=== PATIENT | female | born 1940 | race Caucasian/White ===

== ENCOUNTER 2016-11-13 06:03 | Day surgery (SDC) | payer OTHER ==
[2016-11-04 11:39] VITALS: BMI 24.2
--- NOTE | 2016-11-09 10:10 | HP ---
[facility]ellite [facility] - Chief Complaint Chief Complaint: left knee pain - Past Medical History Allergies/Adverse Reactions: Allergies Allergy/AdvReac Type Severity Reaction Status Date / Time meperidine HCl [From Demerol] Allergy Severe Hives Verified 11/04/16 11:29 propoxyphene HCl Allergy Severe Hives Verified 11/04/16 11:29 [From Darvon] - Current Medications Current Medications: Home Medications Medication Instructions Recorded Cholecalciferol (Vitamin D3) 2,000 unit PO DAILY 11/04/16 [Vitamin D3] Ferrous Sulfate [Feosol] 325 mg PO DAILY 11/04/16 Fosinopril Sodium 20 mg PO DAILY 11/04/16 Turmeric Root Extract [Turmeric] 500 mg PO DAILY 11/04/16 Satellite Physical Exam - Physical Examination General Appearance: Well Nourished, Well Developed, Alert & Oriented x3 ENT: Clear Lung: Normal air movement Heart: Regular rate & rhythm Extremities: Other (left knee- + swelling, + ttp medially, decr rom, nvi xrays show severe medial djd) Neurological: Intact, Alert, Oriented Satellite Impression/Plan - Impression/Plan Impression: left knee medial djd Operative Procedure: left medial [place] Date to be Performed: 11/13/16
[~2016-11-13 06:03] MED LIST: CEFAZOLIN 1 GM/D5W 50 ML IVPB ONE; CELECOXIB 200 MG CAPSULE PO ONE; GABAPENTIN 300 MG CAPSULE (FP) PO ONE; ROPIVICAINE 0.2%/MORPH PF/KETOROLAC - 51ML DISP.SYRINGE IA ONE; TRANEXAMIC ACID 1000 MG/10 ML VIAL IVPUSH ONE
[2016-11-13] MEDS ORDERED: GABAPENTIN 300 MG CAPSULE (FP) ONE (06:26)
[2016-11-13] MEDS ORDERED: CELECOXIB 200 MG CAPSULE ONE (06:26)
[2016-11-13] MEDS ORDERED: THROMBIN (BOVINE) 5,000 UNIT VIAL TP ONE ×2 (07:16→09:17)
[2016-11-13] MEDS ORDERED: ROPIVICAINE 0.2%/MORPH PF/KETOROLAC - 51ML DISP.SYRINGE IA ONE ×2 (07:16→07:52)
[2016-11-13] MEDS ORDERED: ceFAZolin SODIUM 1 GM VIAL ONE ×2 (07:16→08:30)
[2016-11-13] MEDS ORDERED: GELATIN, ABSORBABLE 100 EACH SPONGE TP ONE ×2 (07:16→09:17)
[2016-11-13] MEDS ORDERED: DEXAMETHASONE SOD PHOSPHATE/PF 10 MG/ML SDV ONE (07:20)
[2016-11-13] MEDS ORDERED: MIDAZOLAM HCL 2 MG/2 ML SINGLE DOSE VIAL ONE ×2 (07:21→08:17)
[2016-11-13] MEDS ORDERED: TRANEXAMIC ACID 1000 MG/10 ML VIAL IVPUSH ONE (07:52)
[2016-11-13] MEDS ORDERED: SUCCINYLCHOLINE CHLORIDE 200 MG/10 ML VIAL ONE (08:02)
[2016-11-13] MEDS ORDERED: PROPOFOL 20 ML ONE (08:02)
[2016-11-13] MEDS ORDERED: ONDANSETRON 4 MG/2 ML VIAL ONE (08:42)
[2016-11-13] MEDS ORDERED: TRANEXAMIC ACID 1000 MG/10 ML VIAL ONE (09:38)
[2016-11-13] MEDS ORDERED: MULTIVITAMINS (DAILY MVI) TABLET (FP) PO SCH (10:00)
[2016-11-13] MEDS ORDERED: ONDANSETRON 4 MG/2 ML VIAL IVPB PRN (10:00)
[2016-11-13] MEDS ORDERED: PANTOPRAZOLE 40 MG TABLET (FP) PO SCH (10:00)
[2016-11-13] MEDS ORDERED: LACTATED RINGERS SOLUTION 1,000 ML IV SCH (10:00)
[2016-11-13] MEDS ORDERED: MAG HYDROX/AL HYDROX/SIMETH 30 ML UNIT-DOSE CUP PO PRN (10:00)
--- NOTE | 2016-11-13 10:03 | OP ---
Operative Note - Note: Operative Date: 11/13/16 (bess) Pre-Operative Diagnosis: left knee medial djd Operation: left medial [place] u[place] Post-Operative Diagnosis: Same as Pre-op Surgeon: Gage Caal Head Of Merchandise Buying: Shakeel Morales Anesthesiologist/MIXER RUNNER: Renita Mahmood Anesthesia: Spinal, Local Specimens Removed: bone fragments Estimated Blood Loss (mls): 100 Operative Report Dictated: Yes
[2016-11-13] MEDS ORDERED: oxyCODONE HCL 5 MG TABLET PO PRN ×2 (10:13)
[2016-11-13] MEDS ORDERED: ACETAMINOPHEN 1000 MG/100 ML VIAL (NON FORMULARY) IVPB ONE (10:30)
[2016-11-13] MEDS: CEFAZOLIN 1 GM/D5W 50 ML IVPB SCH (16:00)
[2016-11-13] MEDS: ACETAMINOPHEN 325 MG TABLET (FP) PO SCH (18:14)
[2016-11-13] MEDS: SENNOSIDES/DOCUSATE COMBO (SENNA PLUS) TABLET (UD) PO SCH (23:28)
[2016-11-13] MEDS: oxyCODONE HCL 10 MG SUSTAINED ACTING TABLET PO SCH (23:29)
[2016-11-13] MEDS: GABAPENTIN 300 MG CAPSULE (FP) PO SCH (23:29)
[2016-11-14] MEDS: CEFAZOLIN 1 GM/D5W 50 ML IVPB SCH (00:18)
[2016-11-14] MEDS: ACETAMINOPHEN 325 MG TABLET (FP) PO SCH ×2 (00:18→06:39)
[2016-11-14 06:26] VITALS: BP 105/56; PULSE 61; TEMP 97.9
[2016-11-14] MEDS ORDERED: ASPIRIN 325 MG TABLET PO SCH (08:00)
[2016-11-14] MEDS: SENNOSIDES/DOCUSATE COMBO (SENNA PLUS) TABLET (UD) PO SCH ×2 (09:41→09:42)
[2016-11-14] MEDS: oxyCODONE HCL 10 MG SUSTAINED ACTING TABLET PO SCH (09:43)
[2016-11-14] MEDS: GABAPENTIN 300 MG CAPSULE (FP) PO SCH (09:43)
[2016-11-14] MEDS ORDERED: FOSINOPRIL SODIUM 20 MG PO SCH (10:00)
[2016-11-14] MEDS ORDERED: LISINOPRIL 20 MG TABLET (FP) PO SCH (10:00)
[2016-11-14] MEDS ORDERED: FERROUS SO4 325 MG TABLET (FP) PO SCH (10:00)
--- NOTE | 2016-11-16 15:24 | OP ---
DATE OF OPERATION: 11/13/2016 PROCEDURE: 1. Left medial unicompartmental knee replacement , robotic-assisted navigation (MAKOplasty). 2. Patelloplasty. PREOPERATIVE DIAGNOSIS: Degenerative joint disease, left knee. POSTOPERATVE DIAGNOSIS: Degenerative joint disease, left knee. SURGICAL ATTENDING: Gage Caal MD TOBACCO SORTER: KRISTIN Garibay ANESTHESIA: Regional with spinal. CLOSURE: No. 4 femur, No. 4 tibia, No. 8 polyethylene, No.1 Vicryl to fascia, 0 and 2-0 for subcutaneous, 3-0 Monocryl subcuticular with skin glue for skin, 4-0 undyed Vicryl at pin sites. ESTIMATE BLOOD LOSS: Negligible. COMPLICATIONS: None. CONDITION: To recovery room in stable condition. DESCRIPTION OF OPERATIVE PROCEDURE: The patient was taken to the operating room on November 13, 2016. Spinal and regional anesthesia was administered by the anesthesiologist. IV Kefzol and TXA were administered prophylactically prior to the case. A well-padded pneumatic tourniquet was placed on the left proximal thigh. The left lower extremity was prepped and draped in the usual sterile fashion. The pins that were in the femur were placed with 2 small stab incisions, 1 handbreadth above the patellar tendon, first by a small stab incision followed by drilling bi-cortical pins. The usual pin site was not used as the patient had a previous injury, multiple skin grafts and flaps from a previous surgery. We went slightly more distal, and over the area that had not been affected by the trauma to make 2 stab incisions and then drilling the pins bi-cortically in the tibia. A 6-cm longitudinal incision over the medial retinaculum with Bovie cautery. Sharp dissection was carried down to the level of the fascia. Then a medial parapatellar arthrotomy from mid patella down to the tibial tubercle was made. Partial fat pad was excised. Subperiosteal dissection was done until the medial aspect was exposed. Check points were placed both on the femur and tibia. The knee was registered with the navigation device with center of rotation at the hip, medial and lateral malleoli and multiple points on both the femur and the tibia. Confirmation of excellent registration was confirmed by "popping the bubbles." The osteophytes were then removed beneath the MCL. Then, the knee was tensioned in 0, 30, 60, 90 and 120 degrees of flexion with valgus stress propagating a graft on the navigation device. The virtual positions of the components were optimized to get a good graft. The robot was then brought in the field and registered. The robot was used to ismael the bone, both on the femur and the tibia as outlined by the navigation device. All excess bone and meniscal remnants were then debrided, and he was pulsed antibiotic irrigated, trial reduction with a 4-chamber, 4-tibia and polyethylene achieved. Excellent range of motion and good stability throughout the graft; also showed excellent graft morphology. The trial components were removed. The pins and the check points were removed. The leg was exsanguinated with an Esmarch bandage. Tourniquet was inflated to 175 mmHg. The knee was thoroughly irrigated and cleaned and dried with Gelfoam and thrombin. The real components were then cemented and used in spin techniques with antibiotic cement and pressurization. The knee was then thoroughly inspected to remove all excess cement. The real polyethylene clipped into place. The knee was thoroughly irrigated again with antibiotic irrigation. The parapatellar arthrotomy was then closed 0-Vicryl interrupted suture, 2-0 for the subcuticular and 3-0 Monocryl subcuticular with skin glue to the skin, and 4-0 undyed Vicryl for the pin sites after they were thoroughly irrigated as well. Sterile Aquacel dressing was applied followed by a Golden dressing. Tourniquet was deflated. Total tourniquet time was approximately 25 minutes. No complications. Estimated blood loss negligible. Eloise [id number]
== END 2016-11-14 11:15 | disposition home health service (06) ==
LOC: FASU 06:03 → FM/S 12:19 → FASU 11-14 11:15
PROVIDERS: ATTEND Orthopaedic Surgery
PROC: 8E0YXBZ Computer Assisted Procedure of Lower Extremity (ICD-10-PCS; 2016-11-13)
PROC: 8E0Y0CZ Robotic Assisted Procedure of Lower Extremity, Open Approach (ICD-10-PCS; 2016-11-13)
PROC: 0QQF0ZZ Repair Left Patella, Open Approach (ICD-10-PCS; 2016-11-13)
PROC: 0SRD0L9 Replacement of Left Knee Joint with Medial Unicondylar Synthetic Substitute, Cemented, Open Approach (ICD-10-PCS; principal; 2016-11-13 08:00)
DX: M17.12 Unilateral primary osteoarthritis, left knee (principal)
CPT/HCPCS: 20985; 27437; 27446; C1776; S2900; 73560-TC-LT; 94010; 94760; 97116-GP; 97162-PG